=== PATIENT | female | born 1985 | race Caucasian/White ===

== ENCOUNTER → 2021-08-09 | Outpatient (CLI) | payer OTHER ==
[~2021-08-09] MED LIST: IOHEXOL 240 MG/ML 50ML VIAL. ONE; IOHEXOL 300 MG/ML 75 ML VIAL. ONE
--- NOTE | 2021-08-09 09:22 | RAD ---
Exam Date: 08/09/2021 8:[address] ABDOMEN+PELVIS W Indication: Reason: DIFFUSE ABD TENDERNESS/BLOATING COVID - JUNE 2021 / Spl. Instructions: OMNI 3 00 75ML, OMNI 240 30ML ORAL / History: . TECHNIQUE: CT examination of the abdomen and pelvis was performed following the administration of or al and nonionic intravenous contrast. One or more of the following dose reduction techniques were ut ilized: *Automated exposure control (AEC) *Adjustment of mA and/or kV according to patient size *Use of iterative reconstruction technique *CT scan done according to ALARA, or ALARA/IMAGE GENTLY FINDINGS: The visualized lung bases are clear. The liver, gallbladder, spleen, pancreas, adrenal glands and kidneys are normal. Urinary bladder is normal in appearance. There is no bowel obstruction or inflammation. The appendix is normal. No significant atherosclerotic calcifications are seen. No lymphadenopathy is seen. Small free flui d in the pelvis is nonspecific, likely physiologic. Osseous structures are intact. IMPRESSION: No evidence of acute intra-abdominal pathology. Electronically signed by: Clark Dior MD (08/09/2021 9:20 AM) [id number]
== END ==
LOC: CT 07:36
PROVIDERS: ATTEND Clinical Nurse Specialist Family Health
DX: R10.32 Left lower quadrant pain (principal); R10.11 Right upper quadrant pain; R11.0 Nausea; R14.0 Abdominal distension (gaseous); K92.1 Melena
CPT/HCPCS: 74177; Q9966; Q9967